=== PATIENT | female | born 1995 | race Two or more races ===

== ENCOUNTER 2017-01-19 23:44 | Emergency (ER) | payer OTHER ==
[~2017-01-19] VITALS: Ht 167.6 cm; Wt 86.2 kg
[~2017-01-19 23:44] MED LIST: DOCU-109 PO; IBUP-1060 PO; OXYC-323 PO; PNV1TABL34 PO
[2017-01-20 00:23] VITALS: BP 104/63
[2017-01-20 00:29] LABS: BILIRUBIN,URINE NEGATIVE (NEG); GLUCOSE,URINE NEGATIVE (NEG); NITRITE,URINE NEGATIVE (NEG); PROTEIN,URINE NEGATIVE (NEG-TRACE); UROBILINOGEN,URINE 0.2 mg/dL (0.2 mg/dL)
--- NOTE | 2017-01-20 00:39 | PHYS DOC ---
Past Medical History Past Medical History: No Pertinent History Past Surgical History: Alcohol Use: None Drug Use: None Adult General Chief Complaint Chief Complaint: FLANK PAIN HPI HPI Patient is a 21 year old female with no significant medical history who presents today with left flank pain that began 4 days ago. Patient also complaining of hematuria that occurred once 4 days ago. She is also complaining of dysuria for 4 days. Denies any vomiting but states she had one episode of nausea. Denies any chance she is . Review of Systems Review of Systems Constitutional: Denies fever or chills [] Eyes: Denies change in visual acuity, redness, or eye pain [] HENT: Denies nasal congestion or sore throat [] Respiratory: Denies cough or shortness of breath [] Cardiovascular: No additional information not addressed in HPI [] GI: nausea, GUdysuria and hematuria [] Musculoskeletal: Denies back pain or joint pain [] Integument: Denies rash or skin lesions [] Neurologic: Denies headache, focal weakness or sensory changes [] Endocrine: Denies polyuria or polydipsia [] Allergies Allergies Allergies Coded Allergies Type Severity Reaction Last Updated Verified No Known Drug Allergies 03/13/16 No Physical Exam Physical Exam Constitutional: Well developed, well nourished, no acute distress, non-toxic appearance. [] HENT: Normocephalic, atraumatic, bilateral external ears normal, oropharynx moist, no oral exudates, nose normal. [] Eyes: PERRLA, EOMI, conjunctiva normal, no discharge. [] Neck: Normal range of motion, no tenderness, supple, no stridor. [] Cardiovascular:Heart rate regular rhythm, no murmur [] Lungs & Thorax: Bilateral breath sounds clear to auscultation [] Abdomen: Bowel sounds normal, soft, no tenderness, no masses, no pulsatile masses. [] Skin: Warm, dry, no erythema, no rash. [] Back: No tenderness, no CVA tenderness. [] Extremities: No tenderness, no cyanosis, no clubbing, ROM intact, no edema. [] Neurologic: Alert and oriented X 3, normal motor function, normal sensory function, no focal deficits noted. [] Psychologic: Affect normal, judgement normal, mood normal. [] Current Patient Data Vital Signs Vital Signs Date Time Temp Pulse Resp B/P (MAP) Pulse Ox O2 Delivery O2 Flow Rate FiO2 01/20/17 00:23 98.0 104 20 98 Room Air 98.0 Lab Values Laboratory Tests Test 01/19/17 23:28 01/20/17 00:20 POC Urine HCG, Qualitative Hcg negative (Negative) Urine Collection Type Unknown Urine Color Yellow Urine Clarity Clear Urine pH 7.0 Urine Specific [place] <=1.005 Urine Protein Negative mg/dL (NEG-TRACE) Urine Glucose (UA) Negative mg/dL (NEG) Urine Ketones (Stick) Negative mg/dL (NEG) Urine Blood Moderate (NEG) Urine Nitrite Negative (NEG) Urine Bilirubin Negative (NEG) Urine Urobilinogen Dipstick 0.2 mg/dL (0.2 mg/dL) Urine Leukocyte Esterase Large (NEG) Urine RBC 11-20 /HPF (0-2) Urine WBC Tntc /HPF (0-4) Urine Squamous Epithelial Cells Mod /LPF Urine Bacteria Few /HPF (0-FEW) EKG EKG [] Radiology/Procedures Radiology/Procedures [] Course & Med Decision Making Course & Med Decision Making Pertinent Labs and Imaging studies reviewed. (See chart for details) Patient is in the ED with hematuria for one day, left flank pain and dysuria for 4 days. Urine positive for infection. Patient's symptoms are suspicious of kidney infection, urine was noted for moderate amount of blood, patient states she states her cycle in 2-3 days. I did consider kidney stone as one of the differential diagnosis. Her pain is well controlled. We will send her home with Cipro. We will also send her home with promethazine, Tylenol 3 and cyclobenzaprine for pain. She was instructed to push fluid and follow-up with her own doctor or the provided urologist in the next 7 days. Dragon Disclaimer Dragon Disclaimer This electronic medical record was generated, in whole or in part, using a voice recognition dictation system. Departure Departure Impression: Primary Impression: Acute pyelonephritis Disposition: HOME, SELF-CARE Condition: STABLE Referrals: NO PCP (PCP) NANO DAMIAN MD Follow-up in one week Patient Instructions: Pyelonephritis, Adult Additional Instructions: You were seen for kidney infection. Please complete your antibiotics. Push fluids. Follow up with the provided doctor or your own doctor in the next 7 days. Come back to the ED if symptoms worsen. Scripts Naproxen (NAPROXEN) 500 Mg Tablet. 1 TAB PO BID, #60 TAB 2 Refills Prov: KARUNA MARQUEZ APRN 01/20/17 Acetaminophen With Codeine (TYLENOL WITH CODEINE #3 TABLET) 1 Each Tablet 1 TAB PO PRN Q6HRS Y for PAIN, #30 TAB Prov: KARUNA MARQUEZ APRN 01/20/17 Phenazopyridine Hcl (PYRIDIUM) 100 Mg Tablet 100 MG PO TID, #9 TAB Prov: KARUNA MARQUEZ APRN 01/20/17 Ciprofloxacin Hcl (CIPRO) 500 Mg Tablet 1 TAB PO BID, #14 TAB Prov: KARUNA MARQUEZ APRN 01/20/17 KARUNA MARQUEZ APRN Jan 20, 2017 00:39
[2017-01-20 00:40] LABS: BACTERIA,URINE FEW /HPF (0-FEW); SQUAMOUS EPITHELIAL CELL,UR MOD /LPF; WBC,URINE TNTC /HPF (0-4)
[2017-01-20] MEDS ORDERED: PHEN100T82 PO (01:01)
[2017-01-20] MEDS ORDERED: NAPR500T8 PO (01:01)
[2017-01-20] MEDS ORDERED: ACET-704 PO (01:01)
[2017-01-20] MEDS ORDERED: CIPR500T94 PO (01:01)
== END 2017-01-20 01:21 | disposition home or self-care (01) ==
LOC: ER 23:44
DX: N10 Acute pyelonephritis (principal)
CPT/HCPCS: 81001; 81025; 87086; 99284

== ENCOUNTER 2018-11-03 06:12 | Inpatient (IN) | payer OTHER ==
[~2018-11-03] VITALS: Ht 167.6 cm; Wt 99.8 kg
[~2018-11-03 06:12] MED LIST changes: +ACET-704 PO; +CIPR500T94 PO; +NAPR500T8 PO; -OXYC-323 PO; +OXYC1TAB15 PO; +PHEN100T82 PO
[2018-11-03] MEDS ORDERED: ACETAMINOPHEN 325 MG TABLET. PO PRN (06:15)
[2018-11-03] MEDS ORDERED: fentaNYL PF VIAL 100 MCG/2 ML VIAL IV PRN ×2 (06:15)
[2018-11-03] MEDS ORDERED: NALBUPHINE 10 MG/ML AMPUL. IV PRN (06:15)
[2018-11-03] MEDS ORDERED: MAG HYDROX/ALUMINUM HYD/SIMETH 30 ML ORAL.SUSP PO PRN ×2 (06:15→14:15)
[2018-11-03] MEDS ORDERED: ONDANSETRON PF 4 MG/2 ML VIAL. IV PRN ×2 (06:15→14:15)
[2018-11-03] MEDS ORDERED: OXYTOCIN 30 UNIT/500 ML PREMIX 500 ML IV PRN ×3 (06:15→14:15)
[2018-11-03] MEDS ORDERED: TERBUTALINE 1 MG/ML VIAL. SQ PRN (06:15)
[2018-11-03] MEDS ORDERED: LIDOCAINE 1% PF 30 ML VIAL. INJ PRN (06:15)
[2018-11-03] MEDS ORDERED: IBUPROFEN 400 MG TABLET. PO PRN (06:15)
[2018-11-03] MEDS ORDERED: 0.9 % SODIUM CHLORIDE 10 ML DISP.SYRIN. IV PRN ×2 (06:15→14:15)
[2018-11-03 06:57] LABS: BASO % 0 % (0-3); EOS # 0.1 x10^3/uL (0.0-0.7); EOS % 2 % (0-3); HEMATOCRIT 36.1 % (36.0-47.0); HEMOGLOBIN 12.5 g/dL (12.0-15.5); LYMPH # 2.1 x10^3/uL (1.0-4.8); LYMPH % 28 % (24-48); MEAN CORPUSCULAR HEMOGLOBIN 31 pg (25-35); MEAN CORPUSCULAR HGB CONC 35 g/dL (31-37); MEAN CORPUSCULAR VOLUME 90 fL (79-100); MONO # 0.3 x10^3/uL (0.0-1.1); MONO % 5 % (0-9); NEUT % 66 % (31-73); PLATELET COUNT 217 x10^3/uL (140-400); WHITE BLOOD COUNT 7.6 x10^3/uL (4.0-11.0)
[2018-11-03] MEDS ORDERED: PENICILLIN G K 5,000,000 UNIT in IV DEXTROSE 5% 100ML 100 ML IV ONE (07:00)
[2018-11-03] MEDS: IV RINGERS,LACTATED 1000ML 1,000 ML IV SCH ×3 (07:17→19:42)
[2018-11-03 07:33] LABS: BILIRUBIN,URINE NEGATIVE (NEG); CLARITY,URINE CLEAR; COLOR,URINE YELLOW; NITRITE,URINE NEGATIVE (NEG); PH,URINE 6.5; PROTEIN,URINE NEGATIVE (NEG-TRACE); UROBILINOGEN,URINE 0.2 mg/dL (0.2 mg/dL)
[2018-11-03] MEDS ORDERED: OXYTOCIN PREMIX 30 UNIT/500 ML BAG. IV ONE (08:00)
--- NOTE | 2018-11-03 09:43 | RAD ---
Examination: PREG MORE THAN OR EQ TO 14 WKS History: Position

IMP: Vertex live IUP COMPARISON/CORRELATION: None FINDINGS: Single living intrauterine gestation with heart rate of 145 bpm identified anatomy identified includes: Bladder, spine, bilateral lateral ventricles, stomach, heart, aorta, three-vessel cord insertion, bilateral kidneys, diaphragm, cerebellum, cisterna magna, bilateral upper extremities, and bilateral lower extremities. Placenta is unremarkable with calcifications noted. It is anterior in location. Cephalic intrauterine gestation lie noted. measurements include: Biparietal diameter: 9.8 cm corresponding to 40 weeks 2 day. Femur length of 7.6 cm corresponding to 38 weeks 6 days. Head circumference of 34.7 cm corresponding to 40 weeks 2 days. Abdominal circumference of 39.2 cm Age by 4 parameters corresponds to 39 weeks 6 day. EDC by average age is 11/04/2018. Gestational age by last menstrual period is 39 weeks 1 day with EDC of 11/09/2018. Estimated weight of 4488 g +/- 664 g is identified. Cephalic index of 88.6. H/A ratio is 0.88. FL/BPD is 77.3. FL/ AC is 19.4. Amniotic fluid index of 3.4 cm is seen. There is a 12 cm x 2 cm collection of amniotic fluid. Amniotic fluid volume is at the lower limit of normal range. Uterine cervix is not visualized due to positioning. IMPRESSION: Single living intrauterine gestation with age by 4 parameters corresponding to 39 weeks 6 days. This is slightly greater than age by LMP. Electronically signed by: Dillon Waters MD (11/03/2018 9:40 AM) [facility]
[2018-11-03] MEDS ORDERED: PENICILLIN G K 2,500,000 UNIT in IV DEXTROSE 5% 50 ML IV SCH (11:00)
[2018-11-03] MEDS ORDERED: CITRIC ACID/SODIUM CITRATE 30 ML SOLUTION. PO ONE (12:30)
--- NOTE | 2018-11-03 13:01 | PDOC1 ---
OB - History Hx of Present Care: Good Care Ultrasounds: Normal mid trimester US Obstetrical Complications: None Medical Complications: None Past Family/Social History * Past Medical, Surgical, Family and Obstetric Histories reviewed from chart. Rubella: Immune RPR/VDRL: Negative GBS Status: Negative HBsAG: Negative OB - Chief Complaint & HPI Date of Admission: Date of Admission: Nov 03, 2018 at 06:12 Chief Complaint/History : 2 Para: 1 EGA: 39 Reason for admission: induction of labor (maternal discomforts; desires ) Indication for induction: maternal discomfort Admission Nurse Assessment Rev: Yes OB - Admission Exam Physical Exam HEENT: Normal Heart: Regular Rate Lungs: Clear Abdomen: Gravid, Non tender, Soft Extremities: Edema Reflexes: Normal Cervical Dilatation: Fingertip Effacement: 50% Station: -3 Membranes: Ruptured Amniotic Fluid: Clear Heart Rate: Normal Accelerations: Accelerations Present Decelerations: No decelerations Contractions on Admission: None Text A: 39 wks IUP Previous c/s and desires P: Pt. started on pitocin induction. Today's sono indicated LGA with EFW 10 lbs. Discussed with patient. Will proceed with repeat c/s. ESCOBAR SOOD Jr, MD Nov 03, 2018 13:01
[2018-11-03] MEDS ORDERED: OXYTOCIN 10 UNIT/ML VIAL. ONE ×5 (13:02→13:42)
[2018-11-03] MEDS ORDERED: FAMOTIDINE 20 MG/2 ML VIAL ONE (13:02)
[2018-11-03] MEDS ORDERED: ONDANSETRON PF 4 MG/2 ML VIAL. ONE (13:02)
[2018-11-03] MEDS ORDERED: fentaNYL PF VIAL 100 MCG/2 ML VIAL ONE (13:03)
[2018-11-03] MEDS ORDERED: MORPHINE PF 5 MG/10 ML VIAL. ONE (13:03)
--- NOTE | 2018-11-03 14:02 | PDOC ---
OB DELIVERY OPERATIVE NOTE DATE 11/03/18 PRE OP DIAGNOSIS: Previoujs C- section (suspected LGA) POST OP DIAGNOSIS: Previous C- section OPERATION PERFORMED: R [facility] SURGEON Dr. Garcia ANESTHESIA PROPOSED: REGIONAL (Epidural) BLOOD LOSS 600 ml SPECIMEN placenta and OB Findings: Position (Vertex), Sex (Male), (8/9), Weight ( 7 Lb 14 oz.) COMPLICATIONS none ADDITIONAL REMARKS pt. ESCOBAR Cardoza Jr, MD Nov 03, 2018 14:02
[2018-11-03] MEDS ORDERED: diphenhydrAMINE ORAL ELIXIR 12.5 MG/5 ML ML PO PRN (14:15)
[2018-11-03] MEDS ORDERED: SIMETHICONE 80 MG TAB.CHEW PO PRN (14:15)
[2018-11-03] MEDS ORDERED: ZOLPIDEM 5 MG TABLET. PO PRN (14:15)
[2018-11-03] MEDS ORDERED: KETOROLAC 30 MG/ML VIAL. IV PRN (14:15)
--- NOTE | 2018-11-03 14:28 | OP ---
DATE OF SURGERY: 11/03/2018 PREOPERATIVE DIAGNOSES: 1. Thirty-nine weeks intrauterine . 2. Previous . 3. Suspected large for gestational age. POSTOPERATIVE DIAGNOSIS: Previous . SURGERY: Repeat low transverse section. SURGEON: Escobar Garcia MD ANESTHESIA: Epidural. ESTIMATED BLOOD LOSS: 600 mL. COMPLICATIONS: None. FINDINGS: Viable male , Apgars 8 and 9, weight 7 pounds 14 ounces. Three-vessel cord placenta delivered under gentle traction intact. SUMMARY: A 23-year-old 2, para 1 at 39 weeks, presented for induction of labor secondary to discomforts of . On further evaluation with a sonogram, she was found to have suspected LGA at 10 pounds. The patient was counseled on risks, benefits and expectations of a repeat due to the elevated risk for shoulder dystocia with LGA presentation on sono. She voiced clear understanding to proceed. DESCRIPTION OF PROCEDURE: The patient was taken to surgery suite and placed in dorsal supine position. She was prepped with ChloraPrep and draped in a sterile fashion. After adequate anesthesia, a Pfannenstiel skin incision was made with scalpel down to and through the fascia. Fascia was extended laterally using curved Arciniega scissors. The superior edge of the fascia was grasped with two Raúl clamps and dissected free of the abdominal rectus muscles using blunt dissection along with Bovie cautery. The same process took place inferiorly. The abdominal rectus muscles were dissected bluntly at the midline. Peritoneum was grasped with 2 hemostats and entered sharply with Metzenbaum scissors. This incision was extended superiorly as well as inferiorly. Dell ring retractor was then placed. Low transverse hysterotomy incision was made with scalpel down to the amniotic sac. Hysterotomy incision was extended laterally and superiorly digitally. Amniotomy was performed with Allis clamp, which elicited a small amount of clear fluid. With the aid of fundal pressure, the 's head was delivered in a smooth atraumatic manner. With additional fundal pressure, the 's anterior shoulder was followed by posterior shoulder. Rest of male infant was delivered. was suctioned with a bulb syringe orally and nasally. Umbilical cord was clamped twice and cut. Viable male infant was handed to waiting nursing staff. Umbilical cord blood was then obtained. Three-vessel cord placenta was delivered under gentle traction intact. The uterus was then exteriorized and cleared of clot and debris with a moist lap. Hysterotomy incision were reapproximated using 1-0 Vicryl suture in running locked fashion. Uterus palpated firm. Fallopian tubes and ovaries appeared normal bilaterally. Posterior cul-de-sac was cleared of clot and debris with moist lap. The uterus then returned to the abdomen. The pericolic gutters were cleared of clot and debris with a moist lap. Hysterotomy incision was reviewed and was hemostatic. Interceed was placed over the hysterotomy incision in an inverted T fashion. The Dell ring retractor was removed. The peritoneum was reapproximated using 1-0 Vicryl suture in running fashion. The fascia was reapproximated using 0 Vicryl suture in a running fashion. Skin was reapproximated using 4-0 Vicryl suture in subcuticular manner. The patient tolerated the procedure well and was taken to recovery room in stable condition. Sponge and needle count correct x 3. ESCOBAR GARCIA MD DR: LIVE/andrea JOB#: [id number] / [id number]
[2018-11-03] MEDS ORDERED: miSOPROStol 200 MCG TABLET PR ONE (16:45)
[2018-11-03] MEDS ORDERED: FERROUS SULFATE 325 MG TABLET. PO SCH (17:00)
[2018-11-03] MEDS ORDERED: OXYTOCIN 30 UNIT/500 ML PREMIX 500 ML IV ONE (17:30)
[2018-11-03 20:11] VITALS: BP 116/67
[2018-11-04] VITALS: BP 104/57
[2018-11-04 04:33] VITALS: BP 102/54
[2018-11-04 05:37] LABS: BASO % 0 % (0-3); EOS % 1 % (0-3); HEMOGLOBIN 11.1 g/dL (12.0-15.5); LYMPH # 1.7 x10^3/uL (1.0-4.8); LYMPH % 22 % (24-48); MEAN CORPUSCULAR HEMOGLOBIN 31 pg (25-35); MEAN CORPUSCULAR HGB CONC 35 g/dL (31-37); MEAN CORPUSCULAR VOLUME 91 fL (79-100); MONO # 0.5 x10^3/uL (0.0-1.1); MONO % 6 % (0-9); NEUT # 5.4 x10^3uL (1.8-7.7); NEUT % 71 % (31-73); PLATELET COUNT 177 x10^3/uL (140-400); RED BLOOD COUNT 3.52 x10^6/uL (3.50-5.40); WHITE BLOOD COUNT 7.6 x10^3/uL (4.0-11.0)
[2018-11-04] MEDS: IBUPROFEN 400 MG TABLET. PO PRN ×3 (06:20→23:00)
[2018-11-04] MEDS: DOCUSATE SODIUM 100 MG CAPSULE. PO PRN ×2 (06:20→23:00)
[2018-11-04] MEDS: oxyCODONE/APAP 5/325 1 TAB TABLET PO PRN ×3 (06:20→18:01)
[2018-11-04 08:00] VITALS: BP 101/52
--- NOTE | 2018-11-04 12:49 | PDOC ---
OB Progress Note Date of Service 11/04/18 Time of Evaluation 1245 Notes Pt. feeing well. Pain controlled. No complaints. Lab Laboratory Tests Test 11/03/18 06:42 11/03/18 07:20 11/04/18 05:15 White Blood Count 7.6 x10^3/uL (4.0-11.0) 7.6 x10^3/uL (4.0-11.0) Red Blood Count 4.00 x10^6/uL (3.50-5.40) 3.52 x10^6/uL (3.50-5.40) Hemoglobin 12.5 g/dL (12.0-15.5) 11.1 g/dL (12.0-15.5) Hematocrit 36.1 % (36.0-47.0) 32.0 % (36.0-47.0) Mean Corpuscular Volume 90 fL (79-100) 91 fL (79-100) Mean Corpuscular Hemoglobin 31 pg (25-35) 31 pg (25-35) Mean Corpuscular Hemoglobin Concent 35 g/dL (31-37) 35 g/dL (31-37) Red Cell Distribution Width 14.0 % (11.5-14.5) 14.0 % (11.5-14.5) Platelet Count 217 x10^3/uL (140-400) 177 x10^3/uL (140-400) Neutrophils (%) (Auto) 66 % (31-73) 71 % (31-73) Lymphocytes (%) (Auto) 28 % (24-48) 22 % (24-48) Monocytes (%) (Auto) 5 % (0-9) 6 % (0-9) Eosinophils (%) (Auto) 2 % (0-3) 1 % (0-3) Basophils (%) (Auto) 0 % (0-3) 0 % (0-3) Neutrophils # (Auto) 5.0 x10^3uL (1.8-7.7) 5.4 x10^3uL (1.8-7.7) Lymphocytes # (Auto) 2.1 x10^3/uL (1.0-4.8) 1.7 x10^3/uL (1.0-4.8) Monocytes # (Auto) 0.3 x10^3/uL (0.0-1.1) 0.5 x10^3/uL (0.0-1.1) Eosinophils # (Auto) 0.1 x10^3/uL (0.0-0.7) 0.0 x10^3/uL (0.0-0.7) Basophils # (Auto) 0.0 x10^3/uL (0.0-0.2) 0.0 x10^3/uL (0.0-0.2) Treponema pallidum Antibody Nonreactive (Nonreactive) Hepatitis B Surface Antigen Nonreactive (Nonreactive) Urine Collection Type Unknown Urine Color Yellow Urine Clarity Clear Urine pH 6.5 Urine Specific [place] 1.015 Urine Protein Negative mg/dL (NEG-TRACE) Urine Glucose (UA) Negative mg/dL (NEG) Urine Ketones (Stick) Negative mg/dL (NEG) Urine Blood Negative (NEG) Urine Nitrite Negative (NEG) Urine Bilirubin Negative (NEG) Urine Urobilinogen Dipstick 0.2 mg/dL (0.2 mg/dL) Urine Leukocyte Esterase Large (NEG) Laboratory Tests Test 11/04/18 05:15 White Blood Count 7.6 x10^3/uL (4.0-11.0) Red Blood Count 3.52 x10^6/uL (3.50-5.40) Hemoglobin 11.1 g/dL (12.0-15.5) Hematocrit 32.0 % (36.0-47.0) Mean Corpuscular Volume 91 fL (79-100) Mean Corpuscular Hemoglobin 31 pg (25-35) Mean Corpuscular Hemoglobin Concent 35 g/dL (31-37) Red Cell Distribution Width 14.0 % (11.5-14.5) Platelet Count 177 x10^3/uL (140-400) Neutrophils (%) (Auto) 71 % (31-73) Lymphocytes (%) (Auto) 22 % (24-48) Monocytes (%) (Auto) 6 % (0-9) Eosinophils (%) (Auto) 1 % (0-3) Basophils (%) (Auto) 0 % (0-3) Neutrophils # (Auto) 5.4 x10^3uL (1.8-7.7) Lymphocytes # (Auto) 1.7 x10^3/uL (1.0-4.8) Monocytes # (Auto) 0.5 x10^3/uL (0.0-1.1) Eosinophils # (Auto) 0.0 x10^3/uL (0.0-0.7) Basophils # (Auto) 0.0 x10^3/uL (0.0-0.2) Medications Current Medications Sodium Chloride (Normal Saline Flush) 3 ml QSHIFT PRN IV AFTER MEDS AND BLOOD DRAWS; Start 11/03/18 at 06:15 Ringer's Solution 1,000 ml @ 125 mls/hr Q8H IV Last administered on 11/03/18at 19:42; Start 11/03/18 at 06:15 Nalbuphine HCl (Nubain) 10 mg PRN Q1HR PRN IV Severe labor pain; Start 11/03/18 at 06:15 Fentanyl Citrate (Fentanyl 2ml Vial) 50 mcg PRN Q10MIN PRN IV Labor pain; Start 11/03/18 at 06:15 Fentanyl Citrate (Fentanyl 2ml Vial) 100 mcg PRN Q10MIN PRN IV Labor pain; Start 11/03/18 at 06:15 Acetaminophen (Tylenol) 650 mg PRN Q6HRS PRN PO MILD PAIN / TEMP; Start 11/03/18 at 06:15 Ondansetron HCl (Zofran) 4 mg PRN Q4HRS PRN IV NAUSEA/VOMITING 1ST CHOICE; Start 11/03/18 at 06:15 Al Hydroxide/Mg Hydroxide (Mylanta Plus Xs) 30 ml PRN Q4HRS PRN PO HEARTBURN / GAS; Start 11/03/18 at 06:15; Stop 11/03/18 at 14:13; Status DC Terbutaline Sulfate (Brethine) 0.25 mg 1X PRN PRN SQ SEE COMMENTS; Start 11/03/18 at 06:15; Stop 11/04/18 at 06:14; Status DC Lidocaine HCl (Xylocaine 1% Pf 30ml Vial) 30 ml 1X PRN PRN INJ SEE COMMENTS; Start 11/03/18 at 06:15; Stop 11/05/18 at 06:14 Oxytocin/Sodium Chloride 500 ml @ 0 mls/hr CONT PRN IV SEE I/O RECORD; Start 11/03/18 at 06:15; Stop 11/03/18 at 14:13; Status DC Oxytocin/Sodium Chloride 500 ml @ 0 mls/hr CONT PRN PRN IV Post delivery bleeding; Start 11/03/18 at 06:15; Stop 11/03/18 at 14:13; Status DC Ibuprofen (Motrin) 800 mg PRN Q6HRS PRN PO MODERATE PAIN; Start 11/03/18 at 06:15; Status Cancel Penicillin G Potassium [id number] unit/Dextrose 100 ml @ 100 mls/hr 1X ONCE IV Last administered on 11/03/18at 07:16; Start 11/03/18 at 07:00; Stop 11/03/18 at 07:59; Status DC Penicillin G Potassium [id number] unit/Dextrose 50 ml @ 100 mls/hr Q4H IV Last ad ministered on 11/03/18at 11:13; Start 11/03/18 at 11:00; Stop 11/03/18 at 19:44; Status DC Oxytocin/Sodium Chloride (Oxytocin Premix Infusion) 30 unit STK-MED ONCE IV ; Start 11/03/18 at 08:00; Stop 11/03/18 at 08:29; Status DC Citric Acid/ Sodium Citrate (Bicitra) 30 ml 1X ONCE PO Last administered on 11/03/18at 12:46; Start 11/03/18 at 12:30; Stop 11/03/18 at 12:31; Status DC Cefazolin Sodium/ Dextrose 50 ml @ 100 mls/hr 1X ONCE IV Last administered on 11/03/18at 12:46; Start 11/03/18 at 12:30; Stop 11/03/18 at 12:59; Status DC Famotidine (Pepcid Vial) 20 mg STK-MED ONCE .ROUTE ; Start 11/03/18 at 13:02; Stop 11/03/18 at 13:03; Status DC Ondansetron HCl (Zofran) 4 mg STK-MED ONCE .ROUTE ; Start 11/03/18 at 13:02; Stop 11/03/18 at 13:03; Status DC Oxytocin (Pitocin) 10 unit STK-MED ONCE .ROUTE ; Start 11/03/18 at 13:02; Stop 11/03/18 at 13:03; Status DC Morphine Sulfate (Morphine Preservative Free) 5 mg STK-MED ONCE .ROUTE ; Start 11/03/18 at 13:03; Stop 11/03/18 at 13:04; Status DC Fentanyl Citrate (Fentanyl 2ml Vial) 100 mcg STK-MED ONCE .ROUTE ; Start 11/03/18 at 13:03; Stop 11/03/18 at 13:04; Status DC Oxytocin (Pitocin) 10 unit STK-MED ONCE .ROUTE ; Start 11/03/18 at 13:03; Stop 11/03/18 at 13:04; Status DC Oxytocin (Pitocin) 10 unit STK-MED ONCE .ROUTE ; Start 11/03/18 at 13:03; Stop 11/03/18 at 13:04; Status DC Oxytocin (Pitocin) 10 unit STK-MED ONCE .ROUTE ; Start 11/03/18 at 13:42; Stop 11/03/18 at 13:43; Status DC Oxytocin (Pitocin) 10 unit STK-MED ONCE .ROUTE ; Start 11/03/18 at 13:42; Stop 11/03/18 at 13:43; Status DC Sodium Chloride (Normal Saline Flush) 3 ml QSHIFT PRN IV AFTER MEDS AND BLOOD DRAWS; Start 11/03/18 at 14:15 Oxytocin/Sodium Chloride 500 ml @ 125 mls/hr CONT PRN IV EXCESSIVE POST- BLEEDING; Start 11/03/18 at 14:15; Stop 11/03/18 at 22:14; Status DC Ibuprofen (Motrin) 800 mg PRN Q4HRS PRN PO INFLAMMATION Last administered on 11/04/18at 06:20; Start 11/03/18 at 14:15 Ondansetron HCl (Zofran) 4 mg PRN Q6HRS PRN IV NAUSEA/VOMITING; Start 11/03/18 at 14:15 Docusate Sodium (Colace) 100 mg PRN BID PRN PO CONSTIPATION Last administered on 11/04/18at 06:20; Start 11/03/18 at 14:15 Al Hydroxide/Mg Hydroxide (Mylanta Plus Xs) 30 ml PRN Q4HRS PRN PO HEARTBURN / GAS; Start 11/03/18 at 14:15 Simethicone (Gas-X) 80 mg PRN AFTMEALHC PRN PO GAS / BLOATING; Start 11/03/18 at 14:15 Diphenhydramine HCl (Benadryl Oral Elixir) 12.5 mg PRN Q6HRS PRN PO ITCHING; Start 11/03/18 at 14:15 Ferrous Sulfate (Feosol) 325 mg BIDWMEALS PO ; Start 11/03/18 at 17:00 Zolpidem Tartrate (Ambien) 5 mg PRN QHS PRN PO INSOMNIA, MAY REPEAT X1; Start 11/03/18 at 14:15 Oxycodone/ Acetaminophen (Percocet 5/325) 2 tab PRN Q4HRS PRN PO MODERATE PAIN, SEVERE PAIN Last administered on 11/04/18at 06:20; Start 11/03/18 at 14:15 Ketorolac Tromethamine (Toradol 30mg Vial) 30 mg PRN Q6HRS PRN IV PAIN Last administered on 11/03/18at 15:52; Start 11/03/18 at 14:15; Stop 11/08/18 at 14:14 Misoprostol (Cytotec 200mcg Tab) 800 mcg 1X ONCE NC Last administered on 11/03/18at 16:58; Start 11/03/18 at 16:45; Stop 11/03/18 at 16:55; Status DC Oxytocin/Sodium Chloride 500 ml @ 0 mls/hr 1X ONCE IV ; Start 11/03/18 at 17:30; Stop 11/03/18 at 17:34; Status DC Active Scripts Active Naproxen 500 Mg Tablet. 1 Tab PO BID Tylenol With Codeine #3 Tablet (Acetaminophen/Codeine Phosphate) 1 Each Tablet 1 Tab PO PRN Q6HRS PRN Pyridium (Phenazopyridine Hcl) 100 Mg Tablet 100 Mg PO TID Cipro (Ciprofloxacin Hcl) 500 Mg Tablet 1 Tab PO BID Percocet 5-325 Mg Tablet (Oxycodone/Acetaminophen) 1 Each Tablet 1-2 Tab PO Q4- 6HRS Colace (Docusate Sodium) 100 Mg Capsule 1 Cap PO BID Ibuprofen 800 Mg Tablet 800 Mg PO PRN Q6HRS PRN Reported Plus Iron Tablet (Pnv With Ca,No.72/Iron,Carb/Fa) 1 Each Tablet 1 Each PO DAILY Exam Abd: soft, mild tenderness, fundus firm Incision site: clean, dry and intact Assessment POD#1 s/p repeat c/s Plan of Care: Continue current Tx, Mgmt PEGHEE,ESCOBAR G Jr MD Nov 04, 2018 12:49
[2018-11-04] MEDS ORDERED: OXYC1TAB15 PO (12:52)
[2018-11-04] MEDS ORDERED: IBUP-1060 PO (12:52)
[2018-11-04] MEDS ORDERED: DOCU-109 PO (12:52)
--- NOTE | 2018-11-04 12:52 | DISCH ---
DISCHARGE INSTRUCTIONS Condition on Discharge Condition on Discharge: Stable Activity After Discharge Activity Instructions for Disc: Activity as tolerated Bathing Instructions: No Tub Bath until see Lifting Instructions after Dis: No heavy lifting Driving Instructions after Dis: No driving for 2 weeks Weight Bearing Status after Di: No restrictions Diet after Discharge Diet after Discharge: Regular Diet Texture: Regular Wound Incision Care Wound/Incision Care: Ice to area for comfort, May get incision wet Contacting the DRZachariah after DC Call your doctor for: Concerns you may have Follow-Up Follow up with: Dr. Garcia in 2 weeks Treatment/Equipment after DC Adaptive Equipment Issued: None ESCOBAR GARCIA Jr, MD Nov 04, 2018 12:52
[2018-11-04 15:10] VITALS: BP 102/54
[2018-11-04 23:05] VITALS: BP 96/65
[2018-11-05 06:05] VITALS: BP 95/61
[2018-11-05] MEDS: DOCUSATE SODIUM 100 MG CAPSULE. PO PRN ×2 (07:22→18:10)
[2018-11-05] MEDS: IBUPROFEN 400 MG TABLET. PO PRN ×3 (07:22→22:11)
[2018-11-05] MEDS ORDERED: MEASLES, MUMPS & RUBELLA VACC 0.5 ML VIAL. VAX SQ ONE (09:00)
[2018-11-05 11:00] VITALS: BP 108/74
[2018-11-05] MEDS: oxyCODONE/APAP 5/325 1 TAB TABLET PO PRN (18:10)
[2018-11-05 18:37] VITALS: BP 98/61
[2018-11-05 23:10] VITALS: BP 105/65
[2018-11-06 06:33] VITALS: BP 100/62
[2018-11-06] MEDS: DOCUSATE SODIUM 100 MG CAPSULE. PO PRN (11:11)
[2018-11-06] MEDS: IBUPROFEN 400 MG TABLET. PO PRN (11:11)
[2018-11-06 11:40] VITALS: BP 102/64
--- NOTE | 2018-11-06 12:02 | NUR ---
Discharge Discharge instructions given to patient and family at this time. No questions or concerns noted. To follow up with DR Garcia in 2 weeks, and zuleima kat in 6 weeks. Patient going to have lunch then to be discharged, will monitor.
== END 2018-11-06 15:07 | disposition home or self-care (01) | DRG 788 ==
LOC: 3 SO LND 06:12 → 3 NORTH 19:00
PROVIDERS: ADMIT Obstetrics & Gynecology; ATTEND Obstetrics & Gynecology
PROC: 10D00Z1 Extraction of Products of Conception, Low, Open Approach (ICD-10-PCS; principal; 2018-11-03)
DX: O36.63X0 Maternal care for excessive fetal growth, third trimester, not applicable or unspecified (principal); O34.211 Maternal care for low transverse scar from previous cesarean delivery; Z3A.39 39 weeks gestation of pregnancy; Z37.0 Single live birth
CPT/HCPCS: 36415; 76805; 81003; 85025; 86592; 86850; 86900; 86901; 87340; 90471; 90707; C1781; J0696; J1885; J2270; J2405; J2540; J2590; J3010; J3490; J7120